=== PATIENT | female | born 1980 | race Caucasian/White ===

== ENCOUNTER → 2017-02-13 | Outpatient (CLI) | payer BC ==
[~2017-02-13] MED LIST: ASCA500 PO; CHOLTAB3 PO; MISCCAP80 PO; MULT-506 PO; VITA400C15 PO; ZINC25CA2 PO
== END | disposition home or self-care (01) ==
LOC: C.LABSPEC 16:42
PROVIDERS: ATTEND Physician Assistant
DX: N89.8 Other specified noninflammatory disorders of vagina (principal)

== ENCOUNTER → 2017-05-02 | Outpatient (CLI) | payer BC | END | disposition home or self-care (01) | LOC: C.LABSPEC 17:37 | PROVIDERS: ATTEND Nurse Practitioner | DX: J02.9 Acute pharyngitis, unspecified (principal) ==

== ENCOUNTER 2017-10-09 13:04 | Emergency (ER) | payer BC, OTHER ==
[~2017-10-09] VITALS: Ht 160 cm; Wt 58.9 kg
[2017-10-09 13:08] VITALS: Ht 160 cm; Wt 58.9 kg
[2017-10-09] MEDS ORDERED: FAMOTIDINE 20MG/5ML IV PUSH IV STA (13:24)
[2017-10-09] MEDS ORDERED: SODIUM CHLORIDE 0.9% 1000ML 1,000 ML IV STA (13:24)
[2017-10-09] MEDS ORDERED: ONDANSETRON INJ 2 MG/ML 2 ML VIAL IV STA (13:24)
--- NOTE | 2017-10-09 13:42 | EMERGENCY ROOM VISIT NOTE ---
ED Visit Note First contact with patient: 13:12 CHIEF COMPLAINT: Epigastric pain and bloating HISTORY OF PRESENTING ILLNESS: This is a 37-year-old female who presents to the emergency department with complaint of abdominal pain and bloating for the past 3 days. Patient states that the discomfort started gradually, but has become more significant over the past 2 days and has now been constant, she describes the pain as a pressure and discomfort, currently rates as 6/10. Pain is in the upper abdomen in the epigastric area, it does not radiate. It is worse with eating, better with standing up. She has taken Gas-X without any improvement. She has not tried any other medications for her symptoms. She states that she has had similar symptoms in the past, but they have never lasted this long or been as severe. She has associated nausea but no vomiting, and loose stools 3- 4 times a day, but denies any watery diarrhea or bloody/black stools. She has not had any fevers or chills. She denies any headaches, chest pain, shortness of breath, back pain, dizziness or syncope, dysuria or urinary frequency, or unusual rash. She is currently on her period which started at the same time as her symptoms. She denies any history of abdominal surgeries. She reports a family history of gallbladder disease. REVIEW OF SYSTEMS: A complete 10 point review of systems was reviewed with the patient with pertinent positives and negatives as per history of present illness. All else were negative. PAST MEDICAL HISTORY: IBS, microscopic colitis SOCIAL HISTORY: Lives at home. Denies tobacco use. ALLERGIES: Reviewed in chart. PHYSICAL EXAM: CONSTITUTIONAL: Pleasant and cooperative. No acute distress, but appears uncomfortable. Mildly dehydrated, but otherwise well appearing and well nourished. HEENT: Normocephalic, atraumatic. Pupils equal, round and reactive to light, EOMI. TMs normal. Pharynx normal. Tacky mucous membranes. NECK: Supple, full active range of motion without discomfort. RESPIRATORY: Clear to auscultation bilaterally with no wheezing, crackles, rhonchi or stridor. Equal expansion bilaterally. CARDIOVASCULAR: Regular rate and rhythm with no murmurs, rubs or gallops. Normal peripheral perfusion. No edema. GASTROINTESTINAL: Soft, nondistended. Tender to palpation in the epigastric and right upper quadrant, positive Houser's sign. No rebound tenderness or guarding. No palpable masses or HSM. Bowel sounds present in all quadrants. No CVA tenderness bilaterally. MUSCULOSKELETAL: Full range of motion of all joints without discomfort. INTEGUMENTARY: No rash or other significant dermatologic conditions noted. NEUROLOGIC: Alert and oriented X 4 with normal affect. Normal strength and sensation in all 4 extremities. No focal neurologic deficits noted. Normal speech. Normal gait observed. ED COURSE AND MEDICAL DECISION MAKING: CC: Patient presenting with complaint of epigastric pain, abdominal bloating and nausea DIFFERENTIAL DIAGNOSIS: Includes, but not limited to gastritis, GERD, peptic ulcer disease, gastroenteritis/food poisoning, cholecystitis, cholelithiasis, pancreatitis, among others. INTERPRETATION OF LABS: No leukocytosis, no anemia, no significant electrolyte abnormalities, normal renal function, normal liver enzymes and lipase. UA noting some hematuria, patient is currently on her menses, no evidence of infection. Negative urine . IMAGING: CHEST 2 VIEWS ROUTINE CLINICAL HISTORY: 37 years-old Female presenting with ABDOMINAL PAIN/GI. TECHNIQUE: PA and lateral views of the chest were obtained. COMPARISON: 10/25/2015. FINDINGS: Cardiomediastinal silhouette normal. Lungs and pleural spaces clear. Osseous structures normal. Upper abdomen normal. IMPRESSION: 1. No acute cardiopulmonary disease. ----- GALLBLADDER-ABD LIMITED CLINICAL HISTORY: ABDOMINAL PAIN/GI pain. Nausea. TECHNIQUE: Ultrasound COMPARISON STUDY: 10/25/2015 FINDINGS: Gallbladder is normal. There are no shadowing gallstones. Common bile duct is 5 mm. Liver is uniform throughout. Pancreas is unremarkable. Right kidney shows a slight fullness of the renal collecting system with no evidence for maxime hydronephrosis. IMPRESSION: 1. Slight fullness right renal collecting system. 2. Study of the right upper quadrant is otherwise negative. MEDICATION RECONCILIATION: I attest that I have personally reviewed the patient 's current medication list. INITIAL VITAL SIGNS REVIEW: I reviewed the patient's initial vital signs and interpret them as follows: T: Afebrile; BP: Normotensive; HR: Tachycardic; RR : Within normal limits; Pulse Ox: Within normal limits on room air. Blood pressure screening: The patient was found to have normal blood pressure on screening and does not require follow-up for repeat blood pressure check. SUMMARY: Patient was evaluated at bedside, history and physical exam performed. Patient is alert and oriented, no acute distress, resting calmly in the stretcher. Patient is tender to palpation in the epigastric and right upper quadrant with positive Houser sign. Abdomen is otherwise soft and nondistended. Orders were placed at bedside for labs, UA and urine , IV fluids for hydration, IV Zofran for nausea, IV Pepcid for pain, chest x-ray, right upper quadrant ultrasound to evaluate for gallbladder disease. Patient discussed with Dr. Loredo, who agrees with my assessment and plan. Labs and imaging reviewed as above, no acute abnormalities noted. Patient was also given a GI cocktail for her epigastric pain. Patient reassessed multiple times throughout ED stay, she has remained stable and states that her symptoms are improved after the Pepcid and GI cocktail, and she appears more comfortable. Her tachycardia is resolved with IV fluids. Serial abdominal exams were also performed, patient's tenderness has improved on subsequent exams, and at no time did she exhibit any symptoms of an acute abdomen. Patient was updated on all results and plan for discharge, she was encouraged to follow closely with her PCP and her accounting director for further workup. Rx for Zofran and Pepcid were sent to the pharmacy, patient was educated regarding the use. Patient was also given strict return precautions should her symptoms worsen, she verbalized understanding. Patient was discharged home in stable condition and ambulatory. Current/Historical Medications Scheduled Ascorbic Acid (Vitamin C), 2,000 MG PO DAILY Cholecalciferol (Vitamin D), 400 MG PO BID Famotidine (Pepcid), 1 TAB PO BID Multivitamin (Multivitamin), 1 TAB PO BID Ondasetron Odt (Zofran Odt), 4 MG SL Q6H Tocopheryl Acet,Dl-Alpha (Vitamin E/Dl-Alpha), 400 UNIT PO DAILY Zinc Citrate-Phytase (Zytaze), 1 TAB PO DAILY Allergies Coded Allergies: Dairy (Verified Allergy, Unknown, "NOTED FROM BLOOD TEST", 10/09/17) Egg (Verified Allergy, Unknown, "THICKNESS IN THROAT", 10/09/17) Cane Sugar (Verified Adverse Reaction, Unknown, "I STAY AWAY FROM SUGAR", 10/09/17) Gluten (Verified Adverse Reaction, Unknown, "I STAY AWAY FROM GLUTEN", 10/09) Yeast (Verified Adverse Reaction, Unknown, "CHRONIC YEAST INFECTIONS, SO I STAY AWAY FROM YEAST", 10/09/17) Vital Signs Date Time Temp Pulse Resp B/P (MAP) Pulse Ox O2 Delivery O2 Flow Rate FiO2 10/09/17 15:48 36.8 82 20 95/62 100 10/09/17 14:45 79 16 107/60 100 Room Air 10/09/17 13:08 36.8 106 18 129/78 100 Room Air Laboratory Results 10/09/17 13:40 Red Blood Count 4.66, Mean Corpuscular Volume 88.8, Mean Corpuscular Hemoglobin 30.0, Mean Corpuscular Hemoglobin Concent 33.8, Mean Platelet Volume 11.8, Neutrophils (%) (Auto) 51.1, Lymphocytes (%) (Auto) 29.3, Monocytes (%) (Auto) 6.5, Eosinophils (%) (Auto) 12.3, Basophils (%) (Auto) 0.6, Neutrophils # (Auto ) 3.25, Lymphocytes # (Auto) 1.86, Monocytes # (Auto) 0.41, Eosinophils # (Auto ) 0.78, Basophils # (Auto) 0.04 10/09/17 13:40 Test 10/09/17 13:40 10/09/17 14:05 White Blood Count 6.35 K/uL (4.8-10.8) Red Blood Count 4.66 M/uL (4.2-5.4) Hemoglobin 14.0 g/dL (12.0-16.0) Hematocrit 41.4 % (37-47) Mean Corpuscular Volume 88.8 fL (80-100) Mean Corpuscular Hemoglobin 30.0 pg (25-34) Mean Corpuscular Hemoglobin Concent 33.8 g/dl (32-36) Platelet Count 177 K/uL (130-400) Mean Platelet Volume 11.8 fL (7.4-10.4) Neutrophils (%) (Auto) 51.1 % Lymphocytes (%) (Auto) 29.3 % Monocytes (%) (Auto) 6.5 % Eosinophils (%) (Auto) 12.3 % Basophils (%) (Auto) 0.6 % Neutrophils # (Auto) 3.25 K/uL (1.4-6.5) Lymphocytes # (Auto) 1.86 K/uL (1.2-3.4) Monocytes # (Auto) 0.41 K/uL (0.11-0.59) Eosinophils # (Auto) 0.78 K/uL (0-0.5) Basophils # (Auto) 0.04 K/uL (0-0.2) RDW Standard Deviation 43.2 fL (36.4-46.3) RDW Coefficient of Variation 13.4 % (11.5-14.5) Immature Granulocyte % (Auto) 0.2 % Immature Granulocyte # (Auto) 0.01 K/uL (0.00-0.02) Anion Gap 4.0 mmol/L (3-11) Est Creatinine Clear Calc Drug Dose 86.7 ml/min Estimated GFR () 122.3 Estimated GFR (Non- 105.5 BUN/Creatinine Ratio 17.6 (10-20) Calcium Level 8.7 mg/dl (8.5-10.1) Total Bilirubin 0.4 mg/dl (0.2-1) Direct Bilirubin 0.1 mg/dl (0-0.2) Aspartate Amino Transf (AST/SGOT) 16 U/L (15-37) Alanine Aminotransferase (ALT/SGPT) 20 U/L (12-78) Alkaline Phosphatase 40 U/L (45-117) Total Protein 7.2 gm/dl (6.4-8.2) Albumin 3.5 gm/dl (3.4-5.0) Lipase 180 U/L (73-393) Urine Color YELLOW Urine Appearance CLEAR (CLEAR) Urine pH 6.0 (4.5-7.5) Urine Specific [place] 1.009 (1.000-1.030) Urine Protein NEG (NEG) Urine Glucose (UA) NEG (NEG) Urine Ketones NEG (NEG) Urine Occult Blood 2+ (NEG) Urine Nitrite NEG (NEG) Urine Bilirubin NEG (NEG) Urine Urobilinogen NEG (NEG) Urine Leukocyte Esterase NEG (NEG) Urine WBC (Auto) 0 /hpf (0-5) Urine RBC (Auto) 10-30 /hpf (0-4) Urine Hyaline Casts (Auto) 0 /lpf (0-5) Urine Epithelial Cells (Auto) 20-30 /lpf (0-5) Urine Bacteria (Auto) NEG (NEG) Urine Test NEG (NEG) Medications Administered Medications (Trade) Dose Ordered Sig/Elver Route Start Time Stop Time Status Last Admin Dose Admin Ondansetron HCl (Zofran Inj) 4 mg NOW STAT IV 10/09/17 13:24 10/09/17 13:26 DC 10/09/17 14:04 4 MG Sodium Chloride 1,000 ml @ 999 mls/hr Q1H1M STAT IV 10/09/17 13:24 10/09/17 14:24 DC 10/09/17 14:05 999 MLS/HR Famotidine (Pepcid 20mg Iv Push) 20 mg ONE STAT IV 10/09/17 13:24 10/09/17 13:26 DC 10/09/17 14:05 20 MG Miscellaneous Medication (Gi Cocktail) 24 ml NOW STAT PO 10/09/17 15:12 10/09/17 15:13 DC 10/09/17 15:12 24 ML Departure Information Impression Primary Impression: Epigastric abdominal pain Additional Impression: Abdominal bloating Dispostion Home / Self-Care Condition GOOD Prescriptions Famotidine (PEPCID) 20 Mg Tab 1 TAB PO BID for 30 Days, #60 TAB 5 Refills Prov: Lorena Hatch CRNP 10/09/17 Ondasetron Odt (ZOFRAN ODT) 4 Mg Tab 4 MG SL Q6H for Nausea, #6 TAB Prov: Lorena Hatch CRNP 10/09/17 Referrals Regulo Recinos M.D. (PCP) Joe Hayes D.O. Patient Instructions ED Epigastric Pain [facility], ED PUD Vs Gastritis, [facility] Additional Instructions You have been treated in the Emergency Department for your epigastric pain and abdominal bloating. Laboratory results and imaging studies have ruled out any emergent causes for your symptoms which would warrant admission or surgery. You have been prescribed Zofran to be used as needed for nausea/vomiting. Take as prescribed. You have been prescribed Pepcid (famotidine) 20 mg to be taken 1 tablet twice a day. Take as prescribed. This is to treat your stomach pain and bloating. For pain control, you can use [id number] Regular strength (325mg/tab) Tylenol (acetaminophen) 2 tabs every 4-6 hours as needed. Do not exceed 10 tablets in a 24 hour period. Avoid taking more than 3000 mg of Tylenol per day. This includes any other sources of acetaminophen you may take on a regular basis. Avoid NSAIDs such as ibuprofen, Advil, Aleve, naproxen, aspirin, etc., as this may worsen your symptoms. Avoid coffee and other caffeinated beverages, spicy foods, and fatty foods, as these may also worsen her symptoms. Drink plenty of fluids to stay well hydrated. Please follow-up with your primary care provider and your accounting director for further management of your symptoms. Return to the emergency department for severe worsening abdominal or back pain, severe nausea/vomiting or vomiting blood, blood in your stool or urine, fevers > 101.5, severe dizziness or passing out, or any other concerns. Work Instructions Return To Work: 2 days [employer]
[2017-10-09] MEDS ORDERED: VTME400 PO (13:53)
[2017-10-09] MEDS ORDERED: CHOL400T PO (13:53)
[2017-10-09 13:58] LABS: BASO % 0.6 %; BASO ABS # 0.04 K/uL (0-0.2); EOS % 12.3 %; EOS ABS # 0.78 K/uL (0-0.5); HEMATOCRIT 41.4 % (37-47); IG# 0.01 K/uL (0.00-0.02); LYMPH % 29.3 %; LYMPH ABS # 1.86 K/uL (1.2-3.4); MEAN CELL VOLUME 88.8 fL (80-100); MEAN CORPUSCULAR HGB CONC 33.8 g/dl (32-36); MEAN PLATELET VOLUME 11.8 fL (7.4-10.4); MONO % 6.5 %; MONO ABS # 0.41 K/uL (0.11-0.59); NEUT % 51.1 %; NEUT ABS # 3.25 K/uL (1.4-6.5); PLATELET COUNT 177 K/uL (130-400); RED CELL DISTRIBUTION WIDTH CV 13.4 % (11.5-14.5); RED CELL DISTRIBUTION WIDTH SD 43.2 fL (36.4-46.3); WHITE BLOOD COUNT 6.35 K/uL (4.8-10.8)
[2017-10-09 14:10] LABS: ALBUMIN 3.5 gm/dl (3.4-5.0); CALCIUM 8.7 mg/dl (8.5-10.1); CREATININE 0.72 mg/dl (0.60-1.20); POTASSIUM 4.3 mmol/L (3.5-5.1)
[2017-10-09 14:12] LABS: TOTAL PROTEIN 7.2 gm/dl (6.4-8.2)
--- NOTE | 2017-10-09 14:20 | DIAGNOSTIC IMAGING REPORT ---
CHEST 2 VIEWS ROUTINE CLINICAL HISTORY: 37 years-old Female presenting with ABDOMINAL PAIN/GI. TECHNIQUE: PA and lateral views of the chest were obtained. COMPARISON: 10/25/2015. FINDINGS: Cardiomediastinal silhouette normal. Lungs and pleural spaces clear. Osseous structures normal. Upper abdomen normal. IMPRESSION: 1. No acute cardiopulmonary disease. Electronically signed by: Jigar Fine M.D. 10/09/2017 2:19 PM Dictated Date/Time: 10/09/2017 2:18 PM
--- NOTE | 2017-10-09 14:46 | DIAGNOSTIC IMAGING REPORT ---
GALLBLADDER-ABD LIMITED CLINICAL HISTORY: ABDOMINAL PAIN/GI pain. Nausea. TECHNIQUE: Ultrasound COMPARISON STUDY: 10/25/2015 FINDINGS: Gallbladder is normal. There are no shadowing gallstones. Common bile duct is 5 mm. Liver is uniform throughout. Pancreas is unremarkable. Right kidney shows a slight fullness of the renal collecting system with no evidence for maxime hydronephrosis. IMPRESSION: 1. Slight fullness right renal collecting system. 2. Study of the right upper quadrant is otherwise negative. The above report was generated using voice recognition software. It may contain grammatical, syntax or spelling errors. Electronically signed by: Brandon Kowalski M.D. 10/09/2017 2:44 PM Dictated Date/Time: 10/09/2017 2:42 PM
[2017-10-09] MEDS ORDERED: ONDA4TAB10 SL (15:08)
[2017-10-09] MEDS ORDERED: FAMO20TA9 PO (15:08)
[2017-10-09] MEDS ORDERED: GI COCKTAIL PO STA (15:12)
[2017-10-09] MEDS ORDERED: LIDOCAINE HCL 2% VISC SOLN 20 ML UDC ONE (15:39)
[2017-10-09] MEDS ORDERED: ALUMINUM/MAGNESIUM SUSP 30 ML UDC ONE (15:39)
[2017-10-09 15:48] VITALS: BP 95/62; PULSE 82; TEMP 36.8; O2SAT 100
== END 2017-10-09 15:49 | disposition home or self-care (01) ==
LOC: C.EDB 13:06 → C.EDC 15:49
DX: R10.13 Epigastric pain (principal); R10.11 Right upper quadrant pain; R14.0 Abdominal distension (gaseous); Z91.011 Allergy to milk products; Z91.012 Allergy to eggs; Z91.018 Allergy to other foods